=== PATIENT | female | born 1960 | race Two or more races ===

== ENCOUNTER 2016-05-03 00:36 | Emergency (ER) | payer MEDICAID, OTHER ==
[2016-05-03 00:50] VITALS: BP 154/80; TEMP 98.1
[2016-05-03] MEDS ORDERED: IBUPROFEN 600 MG TAB PO ONE (01:09)
--- NOTE | 2016-05-03 01:22 | EDPHY ---
H & P Stated Complaint: cough, recent illness in house, sore throat HPI/ROS: HPI CHIEF COMPLAINT: Cough, sore throat, wheezing, fever HISTORY OF PRESENT ILLNESS: This patient very pleasant 56-year-old female morbidly obese, significant past medical history for diabetes, hypertension, hyperlipidemia, presents to the emergency room with 2 weeks of upper respiratory tract infection symptoms. Patient states tonight she got a fever. Unclear exactly how high temp it was a tactile fever. She endorses no nausea no vomiting no diarrhea no chest pain no shortness of breath. She tells me that on Tuesday she went to [facility] and was given albuterol inhaler. she states her symptoms have not really improved she has sinus congestion, sore throat, cough nonproductive. Faint wheezing. Past Medical History: Hypertension, hyperlipidemia, obesity, diabetes Past Surgical History: No recent surgical history Social History: Denies use of drugs alcohol tobacco products Family History: noncontributory ROS REVIEW OF SYSTEMS: A comprehensive 10 point review of systems is otherwise negative aside from elements mentioned in the history of present illness. Exam Constitutional Appears well nontoxic,triage nursing summary reviewed, vital signs reviewed, awake/alert. no fever here. Eyes normal conjunctivae and sclera, EOMI, PERRLA. HENT posterior pharynx large tongue, uvula midline, no significant erythema or exudate, nasal turbinates are inflamed, there is sinus congestion, normal inspection, atraumatic, moist mucus membranes, no epistaxis, neck supple/ no meningismus, no raccoon eyes. Respiratory faint wheezing bilaterally, bronchitic sounding cough,normal breath sounds, no respiratory distress, Cardiovascular rate normal, regular rhythm, no murmur, no edema, distal pulses normal. Gastrointestinal soft, non-tender, no rebound, no guarding, normal bowel sounds, no distension, no pulsatile mass. Genitourinary no CVA tenderness. Musculoskeletal no midline vertebral tenderness, full range of motion, no calf swelling, no tenderness of extremities, no meningismus, good pulses, neurovascularly intact. Skin pink, warm, & dry, no rash, skin atraumatic. Neurologic awake, alert and oriented x 3, AAOx3, moves all 4 extremities equally, motor intact, sensory intact, CN II-XII intact, normal cerebellar, normal vision, normal speech. Psychiatric normal mood/affect. Heme/Lymph/Immune no lymphadenopathy. Differential Diagnosis: includes but is not limited to in a particular order, strep pharyngitis, viral syndrome, upper respiratory tract infection, influenza , viral pneumonia, bacterial pneumonia, bronchitis, reactive airway disease, asthma Medical Decision Making: plan for this patient is rapid strep, influenza test, two view chest x-ray to rule out pneumonia, DuoNeb breathing treatment ibuprofen for pain control. It is noted upon arrival here in emergency room the patient does not have a fever. Re-evaluation: ED x-ray chest two view: peribronchial thickening consistent with bronchitis, no focal pneumonia. 0256: Re-examination at this time this patient is resting comfortably no acute distress. Appears well. Feels much better after DuoNeb breathing treatment. Chest x-ray shows no focal pneumonia. There is peribronchial thickening present. Will treat her for bronchitis/viral syndrome. She appears well no trouble swallowing, no chest pain, no shortness of breath. Vital signs been reviewed. Source: Patient - Medical/Surgical History Hx Asthma: No Hx Chronic Respiratory Disease: No Hx Diabetes: Yes Hx Cardiac Disease: No Hx Renal Disease: No Hx Cirrhosis: No Hx Alcoholism: No Hx HIV/AIDS: No Hx Splenectomy or Spleen Trauma: No Other PMH: niddm, hypertension, hyperlipidemia, brain aneurysm. cholecystectomy , right shoulder sx, colon sx - Social History Smoking Status: Never smoked Constitutional: Initial Vital Signs Temperature (C) 36.7 C 05/03/16 00:46 Heart Rate 80 05/03/16 00:46 Respiratory Rate 20 05/03/16 00:46 Blood Pressure 154/80 H 05/03/16 00:46 O2 Sat (%) 92 05/03/16 00:46 O2 Delivery Mode Room Air Allergies/Adverse Reactions: No Known Allergies Allergy (Verified 05/03/16 00:53) Home Medications: Medication Instructions Recorded Losartan Potassium [Cozaar 50 mg 50 mg PO BID 05/11/15 (*)] Metformin HCl [Metformin 1000 mg] 1,000 mg PO BIDMEAL 05/11/15 glipiZIDE [Glipizide] 10 mg PO DAILY 05/11/15 AZITHROMYCIN [Z-PACK] 250 mg PO DAILY #6 tab 05/03/16 Albuterol [Proventil Inhaler HFA 1 - 2 puffs IH Q4H #1 mdi 05/03/16 (*)] Aspirin 81mg (*) 05/03/16 Atorvastatin Calcium 05/03/16 Guaifenesin [Guaifenesin ER] 600 mg PO BID #14 tab.er.12h 05/03/16 Ibuprofen [Motrin (*)] 800 mg PO Q6-8PRN #7 tab 05/03/16 PROVENTIL HFA 05/03/16 traMADol 05/03/16 Medical Decision Making - Data Points Laboratory Results: 05/03/16 05/03/16 05/03/16 Unknown 00:58 00:58 Influenza Typ A,B (DFA) NEGATIVE FOR FLU (NEGATIVE) Group A Strep Screen NEGATIVE (NEGATIVE) Group A Strep DNA Pending Medications Given: Discontinued Medications Albuterol/Ipratropium (Duoneb) 3 ml IH EDNOW ONE Stop: 05/03/16 01:33 Last Admin: 05/03/16 01:36 Dose: 3 ml Ibuprofen (Motrin) 600 mg PO EDNOW ONE Stop: 05/03/16 01:10 Last Admin: 05/03/16 01:16 Dose: 600 mg Departure - Departure Disposition: Home, Routine, Self-Care Clinical Impression: Bronchitis, Viral syndrome Condition: Good Instructions: Viral Syndrome (ED), Acute Bronchitis (ED) Additional Instructions: 1. Return to the emergency room if your feeling worse have worsening shortness of breath, high fever, vomiting. 2. please stay well-hydrated drink lots of fluids 3. take Tylenol or Motrin for pain control. 4. Please follow up with her primary care doctor. Please make appointment next 24 to 48 hours. Referrals: Missy Johnson PA [Primary Care Provider] - As per Instructions Prescriptions: Albuterol [Proventil Inhaler HFA (*)] 1 - 2 puffs IH Q4H #1 mdi AZITHROMYCIN [Z-PACK] 250 mg PO DAILY #6 tab Guaifenesin [Guaifenesin ER] 600 mg PO BID #14 tab.er.12h Ibuprofen [Motrin (*)] 800 mg PO Q6-8PRN #7 tab
[2016-05-03] MEDS ORDERED: IPRATROPIUM/ALBUTEROL 3 ML DEYVIAL IH ONE (01:32)
[2016-05-03 03:29] VITALS: PULSE 86; RESP 18; O2SAT 96
== END 2016-05-03 03:23 | disposition home or self-care (01) ==
DX: J20.9 Acute bronchitis, unspecified (principal); B34.9 Viral infection, unspecified; I10 Essential (primary) hypertension; E11.9 Type 2 diabetes mellitus without complications; Z79.82 Long term (current) use of aspirin

== ENCOUNTER 2017-01-04 20:04 | Emergency (ER) | payer OTHER ==
[2017-01-04] MEDS ORDERED: NS 1,000 ML IV ONE ×3 (20:58→23:51)
--- NOTE | 2017-01-04 21:02 | EDPHY ---
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 cholecystectomy , right shoulder sx, colon sx - Family History Significant Family History: No pertinent family hx - Social History Smoking Status: Never smoked Alcohol Use: Sober Drug Use: None Time Seen by Provider: 01/04/17 20:49 HPI/ROS: CHIEF COMPLAINT: Sore throat, body aches HISTORY OF PRESENT ILLNESS: Patient is a 56-year-old obese female who comes to the emergency department complaining of a sore throat, headaches and body aches for the last 2 days as well as a cough. She states the last time she felt this way she had pneumonia. She did get a flu vaccination about 4 days ago. No vomiting. No chest pain. No trauma. No sinus congestion REVIEW OF SYSTEMS: Constitutional: See HPI EENTM: See HPI Respiratory: See HPI Cardiac: denies: chest pain, irregular heart rate, lightheadedness, palpitations Gastrointestinal/Abdominal: denies: abdominal pain, diarrhea, nausea, vomiting, blood streaked stools Genitourinary: denies: dysuria, frequency, hematuria, pain Musculoskeletal: denies: joint pain, muscle pain Skin: denies: lesions, rash, jaundice, bruising Neurological: denies: headache, numbness, paresthesia, tingling, dizziness, weakness Hematologic/Lymphatic: denies: blood clots, easy bleeding, easy bruising Immunologic/allergic: denies: HIV/AIDS, transplant EXAM: GENERAL: Well-appearing, well-nourished and in no acute distress. HEAD: Atraumatic, normocephalic. EYES: Pupils equal round and reactive to light, extraocular movements intact, sclera anicteric, conjunctiva are normal. ENT: TMs normal, nares patent, oropharynx erythematous but difficult to see . Moist mucous membranes. NECK: Normal range of motion, supple without lymphadenopathy or JVD. LUNGS: Breath sounds clear to auscultation bilaterally and equal. No wheezes rales or rhonchi. HEART: Regular rate and rhythm without murmurs, rubs or gallops. ABDOMEN: Soft, nontender, normoactive bowel sounds. No guarding, no rebound. No masses appreciated. BACK: No CVA tenderness, no spinal tenderness, step-offs or deformities EXTREMITIES: Normal range of motion, no pitting or edema. No clubbing or cyanosis. NEUROLOGICAL: Cranial nerves II through XII grossly intact. Normal speech, normal gait. 5/5 strength, normal movement in all extremities, normal sensation PSYCH: Normal mood, normal affect. SKIN: Warm, dry, normal turgor, no visible rashes or lesions. (Prakash Perez) Constitutional: Initial Vital Signs Temperature (C) 37.1 C 01/04/17 20:09 Heart Rate 126 H 01/04/17 20:09 Respiratory Rate 20 01/04/17 20:09 Blood Pressure 172/99 H 01/04/17 20:09 O2 Sat (%) 94 01/04/17 20:09 O2 Delivery Mode Room Air Allergies/Adverse Reactions: No Known Allergies Allergy (Verified 05/03/16 00:53) Home Medications: Medication Instructions Recorded Losartan Potassium [Cozaar 50 mg 50 mg PO BID 05/11/15 (*)] Metformin HCl [Metformin 1000 mg] 1,000 mg PO BIDMEAL 05/11/15 glipiZIDE [Glipizide] 10 mg PO DAILY 05/11/15 Aspirin [Aspirin 81mg (*)] 81 mg PO DAILY 05/03/16 Gabapentin [Neurontin 100 MG (*)] 100 - 300 mg PO DAILY PRN 12/22/16 amLODIPine BESYLATE [Norvasc 2.5 2.5 mg PO DAILY 12/22/16 mg (*)] Medical Decision Making - Diagnostics EKG Interpretation: An EKG obtained and was read and documented in trace view. Please see trace view for full reading and report. Sinus tachycardia, right bundle branch block , similar to previous (Prakash Perez) ED Course/Re-evaluation: 1:30 a.m.- I followed up on this patient throughout the last 2 hours. She has been tachycardic, however this is improved significantly and her heart rate at rest while I am in the room is 100-102. She feels well. She is complaining of a sore throat mostly. She was somewhat hypoxic throughout her ED course and did wear 2 L of supplemental oxygen. I have talked her about this and her family does endorse a history of obstructive sleep apnea for which she uses a CPAP machine for naps and sleeping at night. This probably accounts for some degree of her hypoxia. Her room air saturations are in the low 90s. I feel she is likely well enough to go home. I have offered her admission, however she would like to recuperate at home. She is followed at the [facility] and I will call their voice message number to leave a message to that she can have follow- up in the next 1-2 days for repeat vital signs. She is in agreement with this plan. (Myrna Vanegas) 10:20 p.m. the patient is flu A positive. Her symptoms began greater than 48 hours ago. I will not start Tamiflu. She is feeling much better but still remains slightly tachycardic. We will continue to hydrate and I will treat with Tylenol and ibuprofen. Temperature currently is 37.8. She denies having any urinary symptoms. 11:15 p.m. the patient is receiving more fluids and is received anti- inflammatories. She is still slightly tachycardic. We will continue to observe. Care transferred to Dr. Vanegas (Prakash Perez) Differential Diagnosis: Partial list of the Differential diagnosis considered include but were not limited to; influenza, strep throat, and although unlikely based on the history and physical exam, I also considered meningitis, pneumonia, sepsis. I discussed these differential diagnoses and the plan with the patient as well as the usual and expected course. The patient understands that the diagnosis is provisional and that in medicine we are not always correct and that further workup is often warranted. Usual and customary warnings were given. All of the patient's questions were answered. The patient was instructed to return to the emergency department should the symptoms at all worsen or return, otherwise to followup with the physician as we discussed. (Prakash Perez) - Data Points Laboratory Results: Laboratory Results 01/04/17 23:58 01/04/17 23:58 Medications Given: Discontinued Medications Acetaminophen (Tylenol) 1,000 mg PO EDNOW ONE Stop: 01/04/17 22:20 Last Admin: 01/04/17 22:27 Dose: 1,000 mg Sodium Chloride (Ns) 1,000 mls @ 0 mls/hr IV ONCE ONE; Wide Open PRN Reason: Protocol Stop: 01/04/17 20:59 Last Admin: 01/04/17 21:15 Dose: 1,000 mls Sodium Chloride (Ns) 1,000 mls @ 0 mls/hr IV ONCE ONE; Wide Open PRN Reason: Protocol Stop: 01/04/17 23:03 Last Admin: 01/04/17 23:03 Dose: 1,000 mls Sodium Chloride (Ns) 1,000 mls @ 0 mls/hr IV EDNOW ONE; Wide Open PRN Reason: Protocol Stop: 01/04/17 23:52 Last Admin: 01/04/17 23:57 Dose: 1,000 mls Ibuprofen (Motrin) 800 mg PO EDNOW ONE Stop: 01/04/17 22:20 Last Admin: 01/04/17 22:27 Dose: 800 mg Throat Lozenges (Cepacol Lozenge) 1 ea PO EDNOW ONE Stop: 01/05/17 01:41 Last Admin: 01/05/17 01:41 Dose: 1 ea Departure - Departure Disposition: Home, Routine, Self-Care Clinical Impression: Influenza A Condition: Good Instructions: Influenza (ED) Additional Instructions: Alterne Tylenol y Ibuprofen para ayudar con el dolor. Nhung suficientes liquidos y descanse. Usted tiene la influenza tipo A. Regrese si tiene dolor de pecho o si tiene dolor incontrolable. Referrals: Missy Johnson PA [Primary Care Provider] - As per Instructions
[2017-01-04 21:22] VITALS: RESP 18
--- NOTE | 2017-01-04 21:53 | CPEKG ---
Heart Rate: 125 RR Interval: 480 P-R Interval: 109 QRSD Interval: 122 QT Interval: 332 QTC Interval: 479 P Volcano: 44 QRS Volcano: 4 T Wave Volcano: -10 EKG Severity - ABNORMAL ECG - EKG Impression: SINUS TACHYCARDIA EKG Impression: RBBB AND LPFB EKG Impression: PROBABLE INFERIOR INFARCT, AGE INDETERMINATE Electronically Signed By: Prakash Perez 04-Jan-2017 22:21:14
[2017-01-04 22:05] LABS: COLOR YELLOW; LEUKOCYTE ESTERASE,URINE 1+ (NEGATIVE); NITRITE,URINE NEGATIVE (NEGATIVE)
[2017-01-04 22:10] LABS: MUCUS TRACE /lpf (NONE-1+)
[2017-01-04] MEDS ORDERED: ACETAMINOPHEN 500 MG TAB PO ONE (22:19)
[2017-01-04] MEDS ORDERED: IBUPROFEN 800 MG TAB PO ONE (22:19)
[2017-01-05 00:09] LABS: % IMMATURE GRANULYOCYTES 0.7 % (0.0-1.1); ABSOLUTE IMMATURE GRANULOCYTES 0.06 10^3/uL (0.00-0.10); ADD DIFF? NO; ADD MORPH? NO; ADD SCAN? NO; ATYPICAL LYMPHOCYTE FLAG 20 (0-99); FRAGMENT RBC FLAG 0 (0-99); HEMATOCRIT 38.9 % (38.0-47.0); HEMOGLOBIN 12.5 g/dL (12.6-16.3); LEFT SHIFT FLG 0 (0-99); LIPEMIA HEMOLYSIS FLAG 80 (0-99); MEAN CELL HEMOGLOBIN 27.6 pg (27.9-34.1); MEAN CELL HEMOGLOBIN CONCENTR. 32.1 g/dL (32.4-36.7); MEAN CELL VOLUME 85.9 fL (81.5-99.8); MEAN PLATELET VOLUME 10.1 fL (8.7-11.7); PLATELET CLUMPS FLAG 10 (0-99); PLATELET COUNT 238 10^3/uL (150-400); RED BLOOD CELL COUNT 4.53 10^6/uL (4.18-5.33); RED CELL DISTRIBUTION WIDTH 13.9 % (11.5-15.2)
[2017-01-05 00:16] VITALS: TEMP 99.1
[2017-01-05 00:35] LABS: ANION GAP 12 mEq/L (8-16); CALCIUM 8.6 mg/dL (8.5-10.4); CARBON DIOXIDE 21 mEq/l (22-31); CHLORIDE 113 mEq/L (97-110); CREATININE 0.7 mg/dL (0.6-1.0); GLOMERULAR FILTRATION RATE > 60; GLUCOSE 160 mg/dL (70-100); POTASSIUM 3.5 mEq/L (3.5-5.2); SODIUM 146 mEq/L (134-144)
[2017-01-05] MEDS ORDERED: CEPACOL LOZENGE PO ONE ×2 (01:40)
[2017-01-05 01:45] VITALS: BP 132/67; PULSE 111; O2SAT 90
== END 2017-01-05 01:44 | disposition home or self-care (01) ==
DX: J10.1 Influenza due to other identified influenza virus with other respiratory manifestations (principal); I10 Essential (primary) hypertension; E11.9 Type 2 diabetes mellitus without complications; E86.9 Volume depletion, unspecified; Z79.82 Long term (current) use of aspirin; Z79.84 Long term (current) use of oral hypoglycemic drugs

== ENCOUNTER 2017-01-13 13:15 | Emergency (ER) | payer OTHER ==
[2017-01-13 13:23] VITALS: TEMP 98.2
[2017-01-13] MEDS ORDERED: KETOROLAC 30 MG/1 ML SDV IM ONE (13:37)
--- NOTE | 2017-01-13 13:37 | EDPHY ---
H & P Stated Complaint: dx influenza/has noticed pain in l throat and l side of face/ eagle Time Seen by Provider: 01/13/17 13:25 HPI/ROS: CHIEF COMPLAINT: Tender throat and face HISTORY OF PRESENT ILLNESS: The patient is a 56-year-old female who I saw on the and diagnosed with influenza a. She comes back to the emergency department today complaining of tender swollen lymph nodes that are causing pain in her left periauricular area and is angle of her mandible the. She states that hurts when she moves her mouth or swallows. She is tolerating the p.o.. She denies sore throat. She denies headache. She has been taking Tylenol at home with minimal improvement. No respiratory complaints. No chest complaints. No headache. REVIEW OF SYSTEMS: Constitutional: See HPI EENTM: denies: blurred vision, double vision, nose congestion Respiratory: denies: cough, shortness of breath Cardiac: denies: chest pain, irregular heart rate, lightheadedness, palpitations Gastrointestinal/Abdominal: denies: abdominal pain, diarrhea, nausea, vomiting, blood streaked stools Genitourinary: denies: dysuria, frequency, hematuria, pain Musculoskeletal: denies: joint pain, muscle pain Skin: denies: lesions, rash, jaundice, bruising Neurological: denies: headache, numbness, paresthesia, tingling, dizziness, weakness Hematologic/Lymphatic: denies: blood clots, easy bleeding, easy bruising Immunologic/allergic: denies: HIV/AIDS, transplant EXAM: GENERAL: Well-appearing, well-nourished and in no acute distress. HEAD: Atraumatic, normocephalic. Is tender slightly swollen lymph nodes left preauricular area and angle of mandible and left eyebrow. No erythema. No pain with eye movement. EYES: Pupils equal round and reactive to light, extraocular movements intact, sclera anicteric, conjunctiva are normal. ENT: TMs normal, nares patent, oropharynx clear without exudates. Moist mucous membranes. NECK: Normal range of motion, supple without lymphadenopathy or JVD. LUNGS: Breath sounds clear to auscultation bilaterally and equal. No wheezes rales or rhonchi. HEART: Regular rate and rhythm without murmurs, rubs or gallops. ABDOMEN: Soft, nontender, normoactive bowel sounds. No guarding, no rebound. No masses appreciated. BACK: No CVA tenderness, no spinal tenderness, step-offs or deformities EXTREMITIES: Normal range of motion, no pitting or edema. No clubbing or cyanosis. NEUROLOGICAL: Cranial nerves II through XII grossly intact. Normal speech, normal gait. 5/5 strength, normal movement in all extremities, normal sensation PSYCH: Normal mood, normal affect. SKIN: Warm, dry, normal turgor, no visible rashes or lesions. Source: Patient Exam Limitations: No limitations - Personal History Current Tetanus/Diphtheria Vaccine: Yes Tetanus Vaccine Date: 2012 - Medical/Surgical History Hx Asthma: No Hx Chronic Respiratory Disease: No Hx Diabetes: Yes Hx Cardiac Disease: No Hx Renal Disease: No Hx Cirrhosis: No Hx Alcoholism: No Hx HIV/AIDS: No Hx Splenectomy or Spleen Trauma: No Other PMH: niddm, hypertension, hyperlipidemia, brain aneurysm. cholecystectomy , right shoulder sx, colon sx - Family History Significant Family History: No pertinent family hx - Social History Smoking Status: Never smoked Alcohol Use: Sober Drug Use: None Constitutional: Initial Vital Signs Temperature (C) 36.8 C 01/13/17 13:20 Heart Rate 100 01/13/17 13:20 Respiratory Rate 20 01/13/17 13:20 Blood Pressure 142/99 H 01/13/17 13:20 O2 Sat (%) 93 01/13/17 13:20 O2 Delivery Mode Room Air Allergies/Adverse Reactions: No Known Allergies Allergy (Verified 01/13/17 13:18) Home Medications: Medication Instructions Recorded Losartan Potassium [Cozaar 50 mg 50 mg PO BID 05/11/15 (*)] Metformin HCl [Metformin 1000 mg] 1,000 mg PO BIDMEAL 05/11/15 glipiZIDE [Glipizide] 10 mg PO DAILY 05/11/15 Aspirin [Aspirin 81mg (*)] 81 mg PO DAILY 05/03/16 Gabapentin [Neurontin 100 MG (*)] 100 - 300 mg PO DAILY PRN 12/22/16 amLODIPine BESYLATE [Norvasc 2.5 2.5 mg PO DAILY 12/22/16 mg (*)] Amlodipine Besylate 01/13/17 Cyclobenzaprine 01/13/17 Promethazine HCl/Codeine 5 ml PO Q4-6PRN PRN #90 ml 01/13/17 [Prometh-Codein 6.25-10 mg/5 ml] Medical Decision Making ED Course/Re-evaluation: The patient has painful lymph nodes. She is currently near the end of an infection with influenza a. Otherwise she is well appearing. No headache. No chest pain or shortness of breath. She does have mild cough. I will treat her with Toradol and a dose of Decadron. She a is happy with this plan. We also discussed [id number] cough syrups because pharmacies are all closed today. We discussed indications for returning. Differential Diagnosis: Partial list of the Differential diagnosis considered include but were not limited to; influenza, lymphadenopathy and although unlikely based on the history and physical exam, I also considered temporal arteritis, meningitis, cellulitis, salivary duct stone. I discussed these differential diagnoses and the plan with the patient as well as the usual and expected course. The patient understands that the diagnosis is provisional and that in medicine we are not always correct and that further workup is often warranted. Usual and customary warnings were given. All of the patient's questions were answered. The patient was instructed to return to the emergency department should the symptoms at all worsen or return, otherwise to followup with the physician as we discussed. - Data Points Medications Given: Discontinued Medications Dexamethasone (Decadron Injection) 10 mg PO EDNOW ONE Stop: 01/13/17 13:39 Last Admin: 01/13/17 13:41 Dose: 10 mg Ketorolac Tromethamine (Toradol) 30 mg IM EDNOW ONE Stop: 01/13/17 13:38 Last Admin: 01/13/17 13:41 Dose: 30 mg Departure - Departure Disposition: Home, Routine, Self-Care Clinical Impression: Influenza A, Lymphadenopathy of head and neck Condition: Fair Instructions: Influenza Virus Vaccine (By injection), Lymphadenopathy (ED), Influenza (ED) Referrals: [facility],. [Primary Care Provider] - As per Instructions Prescriptions: Promethazine HCl/Codeine [Prometh-Codein 6.25-10 mg/5 ml] 5 ml PO Q4-6PRN PRN # 90 ml PRN Reason: Cough, Moderate
[2017-01-13] MEDS ORDERED: DEXAMETHASONE 10 MG/ML VIAL PO ONE (13:38)
[2017-01-13 14:16] VITALS: BP 144/70; PULSE 81; RESP 18; O2SAT 97
== END 2017-01-13 14:16 | disposition home or self-care (01) ==
DX: J10.1 Influenza due to other identified influenza virus with other respiratory manifestations (principal); R59.0 Localized enlarged lymph nodes; E11.9 Type 2 diabetes mellitus without complications; I10 Essential (primary) hypertension; Z79.82 Long term (current) use of aspirin; Z79.84 Long term (current) use of oral hypoglycemic drugs
CPT/HCPCS: J1100; J1885

== ENCOUNTER 2017-01-28 09:43 | Inpatient (IN) | payer OTHER ==
[2017-01-03 11:54] LABS: ANION GAP 11 mEq/L (8-16); CALCIUM 9.1 mg/dL (8.5-10.4); CARBON DIOXIDE 27 mEq/l (22-31); CHLORIDE 107 mEq/L (97-110); CREATININE 0.8 mg/dL (0.6-1.0); GLOMERULAR FILTRATION RATE > 60; GLUCOSE 89 mg/dL (70-100); POTASSIUM 4.6 mEq/L (3.5-5.2); SODIUM 145 mEq/L (134-144)
[~2017-01-28 09:43] MED LIST: ROPIVACAINE 0.2% 80 MG, EPINEPHrine 0.2 MG, KETOROLAC TROMETHAMINE 30 MG in SYRINGE 0 ML IU ONE; TRANEXAMIC ACID 3,000 MG in NS 50 ML IRR ONE; VANCOMYCIN 1 GM VIAL ONE
--- NOTE | 2017-01-28 10:20 | PDHPUP ---
History & Physical Update H&P update statement: This history and physical update is based on an assessment of the patient which was completed after admission or registration (within 24 hours), but prior to the surgery/procedure. H&P update: H&P reviewed & patient examined, no change in patient's condition since H&P completed
[2017-01-28] MEDS ORDERED: ACETAMINOPHEN 325 MG TAB PO ONE (11:18)
[2017-01-28] MEDS ORDERED: ceFAZolin 2 GM/SWFI 2 GM/20 ML SYR IVP ONE (11:18)
[2017-01-28] MEDS ORDERED: DEXAMETHASONE 4 MG/ML VIAL IVP ONE (11:18)
[2017-01-28] MEDS ORDERED: FAMOTIDINE 20 MG TAB PO ONE (11:18)
[2017-01-28] MEDS ORDERED: MIDAZOLAM 2 MG/2 ML VIAL IVP ONE (11:56)
[2017-01-28] MEDS ORDERED: MIDAZOLAM 2 MG/2 ML VIAL ONE (11:56)
--- NOTE | 2017-01-28 11:57 | PDANEPAE ---
ANE History of Present Illness rIGHT KNEE OA ANE Past Medical History - Cardiovascular History Hx Hypertension: Yes Hx Arrhythmias: No Hx Chest Pain: No Hx Coronary Artery / Peripheral Vascular Disease: No Hx CHF / Valvular Disease: No Hx Palpitations: No - Pulmonary History Hx COPD: No Hx Asthma/Reactive Airway Disease: No Hx Recent Upper Respiratory Infection: No Hx Oxygen in Use at Home: No Hx Sleep Apnea: Yes Sleep Apnea Screening Result - Last Documented: Positive - Neurologic History Hx Cerebrovascular Accident: No Hx Seizures: No Hx Dementia: No - Endocrine History Hx Diabetes: Yes Obesity: severe - Renal History Hx Renal Disorders: No - Liver History Hx Hepatic Disorders: No - Neurological & Psychiatric Hx Hx Neurological and Psychiatric Disorders: No Neurological / Psychiatric History Comment: cerebral anurysm stable - Cancer History Hx Cancer: No - Congenital Disorder History Hx Congenital Disorders: No - GI History Hx Gastrointestinal Disorders: Yes Gastrointestinal History Comment: HX COLON RESECTION - Other Health History Other Health History: none - Chronic Pain History Chronic Pain: No - Surgical History Prior Surgeries: COLON RESECTION. CHOLECYSTECTOMY. SHOULDER SURGERY ANE Review of Systems Review of Systems: - Exercise capacity METS (RN): 3 METS ANE Patient History - Allergies Allergies/Adverse Reactions: No Known Allergies Allergy (Verified 01/13/17 13:18) - Home Medications Home medications: home medication list seen and reviewed Home Medications: Losartan Potassium [Cozaar 50 mg (*)] 50 mg PO BID 05/11/15 [Last Taken 01/25/17 ] Metformin HCl [Metformin 1000 mg] 1,000 mg PO BIDMEAL 05/11/15 [Last Taken 01/26] glipiZIDE [Glipizide] 10 mg PO DAILY 05/11/15 [Last Taken 01/25/17] Aspirin [Aspirin 81mg (*)] 81 mg PO DAILY 05/03/16 [Last Taken 01/20/17] Gabapentin [Neurontin 100 MG (*)] 100 - 300 mg PO DAILY PRN 12/22/16 [Last Taken Unknown] amLODIPine BESYLATE [Norvasc 2.5 mg (*)] 2.5 mg PO DAILY 12/22/16 [Last Taken ] Cyclobenzaprine 01/13/17 [Last Taken 01/25/17] - NPO status NPO Status: no food or drink >8 hours NPO Since - Liquids (Date): 01/28/17 NPO Since - Solids (Date): 01/27/17 - Smoking Hx Smoking Status: Never smoked - Family Anes Hx Family Hx Anesthesia Complications: none ANE Labs/Vital Signs - Labs Result Diagrams: 01/03/17 11:00 - Vital Signs Blood Pressure: 164/93 Heart Rate: 104 Respiratory Rate: 16 O2 Sat (%): 92 Height: 160 cm Weight: 99.79 kg ANE Physical Exam - Airway Neck exam: FROM Mallampati Score: Class 3 Mouth exam: normal dental/mouth exam - Pulmonary Pulmonary: no respiratory distress - Cardiovascular Cardiovascular: regular rate and rhythym - ASA Status ASA Status: III ANE Anesthesia Plan Anesthesia Plan: general endotracheal anesthesia, spinal Regional Anesthesia: adductor canal FNB
[2017-01-28] MEDS ORDERED: PROPOFOL/EMULSION 500 MG/50 ML BOTTLE IV ONE ×2 (12:04→13:04)
[2017-01-28] MEDS ORDERED: fentaNYL 100 MCG/2 ML INJ ONE (12:04)
[2017-01-28] MEDS ORDERED: ONDANSETRON 4 MG/2 ML VIAL ONE (12:20)
[2017-01-28] MEDS ORDERED: DEXAMETHASONE 4 MG/ML VIAL ONE (12:20)
[2017-01-28] MEDS ORDERED: TEMAZEPAM 15 MG CAP PO PRN (12:38)
[2017-01-28] MEDS ORDERED: POLYETHYLENE GLYCOL 3350 17 GM PKT PO PRN (12:38)
[2017-01-28] MEDS ORDERED: METOCLOPRAMIDE 10 MG/2 ML VIAL IVP PRN (12:38)
[2017-01-28] MEDS ORDERED: PROMETHAZINE HCL 25 MG/ML INJ IVP PRN ×2 (12:38→12:41)
[2017-01-28] MEDS ORDERED: ONDANSETRON DISINTEGRATING 4 MG TAB PO PRN (12:38)
[2017-01-28] MEDS ORDERED: LACTULOSE 20 GM/30 ML UDCUP PO PRN (12:38)
[2017-01-28] MEDS ORDERED: CYCLOBENZAPRINE 10 MG TAB PO PRN (12:38)
[2017-01-28] MEDS ORDERED: MAGNESIUM HYDROXIDE 30 ML UDCUP PO PRN (12:38)
[2017-01-28] MEDS ORDERED: DIPHENOXYLATE/ATROPINE LOMOTIL 1 TAB PO PRN (12:38)
[2017-01-28] MEDS ORDERED: diphenhydrAMINE 25 MG CAP PO PRN (12:38)
[2017-01-28] MEDS ORDERED: oxyCODONE IR 5 MG TAB PO PRN (12:38)
[2017-01-28] MEDS ORDERED: BISACODYL 10 MG SUPP PR PRN (12:38)
[2017-01-28] MEDS ORDERED: PROMETHAZINE HCL 25 MG SUPPR PR PRN (12:38)
[2017-01-28] MEDS ORDERED: ONDANSETRON 4 MG/2 ML VIAL IVP PRN ×2 (12:38→12:41)
[2017-01-28] MEDS ORDERED: GABAPENTIN 100 MG CAP PO PRN (12:39)
[2017-01-28] MEDS ORDERED: ROPIVACAINE HCL 150 MG/30 ML INJ ONE (12:40)
[2017-01-28] MEDS ORDERED: MEPERIDINE 25 MG/ML SYR IVP PRN (12:41)
[2017-01-28] MEDS ORDERED: HYDROmorphONE/DILAUDID 1 MG/ML INJ IVP PRN (12:41)
[2017-01-28] MEDS ORDERED: NALOXONE HCL 0.4 MG/ML INJ IVP PRN (12:41)
[2017-01-28] MEDS ORDERED: OXYCODONE/APAP 5/325 TAB PO PRN (12:41)
[2017-01-28] MEDS ORDERED: fentaNYL 100 MCG/2 ML INJ IVP PRN (12:41)
[2017-01-28] MEDS ORDERED: HYDROmorphone HCL/NS/PF 0.4 MG/2 ML SYR IVP PRN (12:52)
[2017-01-28] MEDS ORDERED: LR 1,000 ML IV SCH (13:00)
--- NOTE | 2017-01-28 13:41 | POSTANESTH ---
Post Anesthetic Evaluation Cardiovascular Status: Normal, Stable Respiratory Status: Normal, Stable Level of Consciousness/Mental Status: Can Participate in Eval Pain Control: Adequate, Prn Tx Ordered Nausea/Vomiting Control: Adequate, Prn Tx Ordered Complications Possibly Related to Anesthesia: None Noted
--- NOTE | 2017-01-28 13:42 | POSTOPPROG ---
Post Op Note Date of Operation: 01/28/17 Surgeon: Carina Reed Hub Bander: Janice Reed PAc Anesthesiologist: Josue Anesthesia: Spinal Pre-op Diagnosis: R knee djd Post-op Diagnosis: same Indication: pain Procedure: R TKA Findings: DJD knee Inf/Abcess present in the surg proc area at time of surgery?: No EBL: 50-100
[2017-01-28] MEDS ORDERED: D50W 25 GM/50 ML SYR IVP PRN (17:08)
[2017-01-28] MEDS ORDERED: NON-FORMULARY NEW DRUG (Metformin Hcl [Metformin 1000 Mg] 1,000 MG) PO SCH (18:00)
[2017-01-28] MEDS: ACETAMINOPHEN 325 MG TAB PO SCH (18:36)
[2017-01-28] MEDS: metFORMIN HCL 500 MG TAB PO SCH (18:37)
[2017-01-28] MEDS: INSULIN LISPRO 100 UNIT/ML SC SCH (18:37)
[2017-01-28] MEDS ORDERED: ASPIRIN 325 MG TAB PO SCH (21:00)
[2017-01-28] MEDS: SENNOSIDES/DOCUSATE SODIUM TAB PO SCH (21:20)
[2017-01-28] MEDS: ASPIRIN EC 81 MG TAB PO SCH (21:21)
[2017-01-28] MEDS: LOSARTAN POTASSIUM 50 MG TAB PO SCH (21:21)
[2017-01-28] MEDS: FAMOTIDINE 20 MG TAB PO SCH (21:24)
[2017-01-28] MEDS: ceFAZolin 2 GM/DEXTROSE 100 ML IV SCH (21:24)
[2017-01-28 22:44] VITALS: RESP 17
[2017-01-29] MEDS: ACETAMINOPHEN 325 MG TAB PO SCH ×3 (00:25→12:37)
[2017-01-29] MEDS: ceFAZolin 2 GM/DEXTROSE 100 ML IV SCH (04:54)
[2017-01-29 05:04] LABS: HEMATOCRIT 35.5 % (38.0-47.0); HEMOGLOBIN 11.6 g/dL (12.6-16.3)
[2017-01-29 07:32] VITALS: BP 119/63; TEMP 98.4
[2017-01-29] MEDS: FAMOTIDINE 20 MG TAB PO SCH (08:36)
[2017-01-29] MEDS: ASPIRIN EC 81 MG TAB PO SCH (08:36)
[2017-01-29] MEDS: LOSARTAN POTASSIUM 50 MG TAB PO SCH (08:36)
[2017-01-29] MEDS: INSULIN LISPRO 100 UNIT/ML SC SCH (08:37)
[2017-01-29] MEDS: metFORMIN HCL 500 MG TAB PO SCH (08:39)
[2017-01-29] MEDS: SENNOSIDES/DOCUSATE SODIUM TAB PO SCH (08:39)
[2017-01-29] MEDS ORDERED: glipiZIDE 10 MG TAB PO SCH (09:00)
--- NOTE | 2017-01-29 09:51 | SOAPPROG ---
[facility] Progress Note Assessment/Plan: Assessment: Plan: 01/29/17 09:49 Ca is doing well today POD 1 s/p R TKA 1) pain management: pain is well controlled on oral pain management 2) VTE ppx: recommend aspirin 81 mg BID 3) Anemia: level expected initially postop 4) d/c planning: d/c to home pending release from PT Subjective: Ca is doing well today, denies SOB, chest pain, and N/v. pain well controlled on oral pain meds Objective: Vital Signs Temp Pulse Resp BP Pulse Ox 36.9 C 99 17 119/63 95 01/29/17 07:30 01/29/17 07:30 01/29/17 04:00 01/29/17 08:36 01/29/17 07:30 Laboratory Results 01/29/17 04:31 01/03/17 11:00 01/28/17 01/29/17 01/30/17 05:59 05:59 05:59 Intake Total 1950 Output Total 650 Balance 1300 RLE: incision dressing is clean and dry, NVI, +pf/df ICD10 Worksheet Patient Problems: Problems Problem Status Onset Primary localized osteoarthritis of right knee Acute Cerebral aneurysm Acute Diabetes Acute HTN (hypertension) Acute Hypoxemia requiring supplemental oxygen Acute Pharyngitis, acute Acute
[2017-01-29 13:16] VITALS: PULSE 102; O2SAT 92
--- NOTE | 2017-01-29 14:36 | ASDISCHSUM ---
Discharge Information Plan Status:Home with No Needs Medically Cleared to Leave: Discharge Date:01/29/2017 01:02 PM CM D/C Disposition:Home, Routine, Self-Care ADT D/C Disposition:Home, Routine, Self-Care Projected Discharge Date:01/29/2017 01:02 PM Transportation at D/C: Discharge Delay Reason: Follow-Up Date:01/29/2017 01:02 PM Discharge Slot: Final Diagnosis: Placement Information Patient Contact Information Contact Name:MARIBELL Relationship: Address:[address] Work Phone: City:[place] Alternate Phone: State/Zip Code:[place] [address] Email: Financial Information Financial Class:Self-Pay Primary Plan Desc:WE CARE Primary Plan Number:99 Secondary Plan Desc: Secondary Plan Number: Assessment Information Intervention Information
--- NOTE | 2017-01-30 10:52 | GDS ---
[f rep st] DISCHARGE SUMMARY ADMISSION DIAGNOSIS: Right knee osteoarthritis. DISCHARGE DIAGNOSIS: Right knee osteoarthritis PROCEDURE: Right total knee arthroplasty. VTE PROPHYLAXIS: Recommend aspirin 81 mg twice daily for 4 weeks. BRIEF DESCRIPTION OF HOSPITAL STAY: Patient was admitted for an elective joint arthroplasty. The pa tient tolerated the procedure well and has passed physical therapy. The patient was given appropriat e antibiotic prophylaxis and venous thromboembolism prophylaxis. The patient's pain was well control led on oral pain medication, patient was holding down food, and had urinated. Decision was made to d ischarge the patient. The patient was given post-operative prescriptions pre-operatively. PLAN: Please follow up as scheduled. /[id number]/MODL
--- NOTE | 2017-01-31 21:53 | GOP ---
[f rep st] OPERATIVE REPORT DATE OF OPERATION: 01/28/2017 SURGEON: Frank Reed MD WINDOWS ARCHITECT: Janice Reed PA-C ANESTHESIA: Spinal. PREOPERATIVE DIAGNOSIS: Right knee osteoarthritis. POSTOPERATIVE DIAGNOSIS: Right knee osteoarthritis. . PROCEDURE PERFORMED: Right total knee arthroplasty. FINDINGS: ESTIMATED BLOOD LOSS: 30 cc. INDICATIONS: This is a 56-year-old female with severe and progressive pain and deformity of the right knee unresponsive to conservative care. Risks and benefits of the surgical intervention were explained in detail. DESCRIPTION OF PROCEDURE: The patient was brought to the operative room and placed on the table in the supine position. Spinal anesthesia was induced without difficulty. A pneumatic tourniquet was applied about the right proximal thigh, and the leg was prepped and draped in a sterile fashion. The leg mitchell was applied. After exsanguination by elevation the tourniquet was inflated to 250 mm of mercury. Incision was made anterior medial from the tibial tuberosity to a point 2 cm proximal to the superior pole of the patella. Medial parapatellar arthrotomy was carried out from the superior pole of the patella and posteriorly in line with the fibers of the Type 2 VMO. The medial collateral ligament was elevated and the infrapatellar fat pad was resected. The patella was everted and the articular surface was excised. A 35 mm patellar button was placed. The distal femoral guide hole was drilled and the 60 -degree alignment demi was placed. A 10 mm distal femoral cut was made without difficulty. Attention was turned to the tibia and a standard 9 mm cut based on the the lateral tibial condyle was performed. The tibial articular surface was excised without difficulty. Attention was turned back to the femur and a size 3 Triathlon femoral cutting block was positioned. Anterior, posterior, and chamfer cuts were made, followed by the intercondylar box cut. The knee was extended and the remnants of the medial and lateral meniscus were excised. The posterior capsule was injected with ropivacaine, epinephrine and Toradol. A size 4 MIS mini-keel tibial tray was positioned. Trial reduction was then carried out. There was excellent range of motion, alignment, and stability using the 11 mm polyethylene. All trials were then removed. The joint was thoroughly irrigated and carefully dried. Two packages of cement and 2 grams of vancomycin were mixed in the vacuum mixer and placed on the fixation surfaces of all surfaces of the components. The components were implanted and all excess cement was thoroughly removed. The permanent 11 mm polyethylene was placed without difficulty. The tourniquet was deflated and all bleeders were coagulated. The wound was thoroughly irrigated and closed using interrupted sutures of 2-0 Vicryl for the joint capsule. The subcu was closed with 3-0 Vicryl and the skin with 4-0 Monocryl. Dermabond and Steri-Strips were applied followed by a compressive dressing. The patient was then moved from the operating room to the recovery room in good condition, having tolerated the procedure well. PATHOLOGY: Severe medial and patellofemoral osteoarthritis. /[id number]/MODL MTDD
== END 2017-01-29 13:02 | disposition home or self-care (01) | DRG 470 ==
LOC: F3N 09:43
PROVIDERS: ADMIT Orthopaedic Surgery; ATTEND Orthopaedic Surgery
PROC: 0SRC0J9 Replacement of Right Knee Joint with Synthetic Substitute, Cemented, Open Approach (ICD-10-PCS; principal; 2017-01-28 12:15)
DX: M17.11 Unilateral primary osteoarthritis, right knee (principal); E11.9 Type 2 diabetes mellitus without complications
CPT/HCPCS: 97161-GP; 97165-GO; C1713; J0171; J0690; J1100; J1815; J1885; J2250; J2405; J2704; J2795; J3010; J3370

== ENCOUNTER 2017-07-13 08:41 | Observation (INO) | payer OTHER ==
[~2017-07-13 08:41] MED LIST changes: +ROPIVACAINE 0.2% 80 MG, EPINEPHrine 0.2 MG in SYRINGE 0 ML IU ONE; -TRANEXAMIC ACID 3,000 MG in NS 50 ML IRR ONE; -VANCOMYCIN 1 GM VIAL ONE
[2017-07-13] MEDS ORDERED: TRANEXAMIC ACID 3,000 MG in NS (SYRINGE) 50 ML IRR ONE (09:09)
[2017-07-13] MEDS ORDERED: DEXAMETHASONE 4 MG/ML VIAL IVP ONE (09:09)
[2017-07-13] MEDS ORDERED: ceFAZolin 2 GM/DEXTROSE 100 ML IV ONE (09:09)
[2017-07-13] MEDS ORDERED: FAMOTIDINE 20 MG TAB PO ONE (09:09)
[2017-07-13] MEDS ORDERED: LR 1,000 ML IV ONE (09:29)
[2017-07-13] MEDS ORDERED: LIDOCAINE 1% 2 ML INJ ID PRN (09:29)
[2017-07-13] MEDS ORDERED: ceFAZolin 2 GM/SWFI 2 GM/20 ML SYR IVP ONE (09:30)
[2017-07-13] MEDS ORDERED: VANCOMYCIN 1 GM VIAL ONE (09:57)
[2017-07-13] MEDS ORDERED: MIDAZOLAM 2 MG/2 ML VIAL ONE (10:58)
[2017-07-13] MEDS ORDERED: MIDAZOLAM 2 MG/2 ML VIAL IVP ONE (10:59)
--- NOTE | 2017-07-13 11:01 | PDANEPAE ---
ANE History of Present Illness left knee oa ANE Past Medical History - Cardiovascular History Hx Hypertension: Yes Hx Arrhythmias: No Hx Chest Pain: No Hx Coronary Artery / Peripheral Vascular Disease: No Hx CHF / Valvular Disease: No Hx Palpitations: No - Pulmonary History Hx COPD: No Hx Asthma/Reactive Airway Disease: No Hx Recent Upper Respiratory Infection: No Hx Oxygen in Use at Home: No Hx Sleep Apnea: Yes Sleep Apnea Screening Result - Last Documented: Negative Pulmonary History Comment: NOCTURNAL HYPOXIA ELISSA WITH CPAP - Neurologic History Hx Cerebrovascular Accident: No Hx Seizures: No Hx Dementia: No Neurologic History Comment: HX OF ANEURYSM IN BRAIN - Endocrine History Hx Diabetes: Yes Endocrine History Comment: TYPE 11 - Renal History Hx Renal Disorders: No - Liver History Hx Hepatic Disorders: No - Neurological & Psychiatric Hx Hx Neurological and Psychiatric Disorders: No Neurological / Psychiatric History Comment: cerebral anurysm stable - Cancer History Hx Cancer: No - Congenital Disorder History Hx Congenital Disorders: No - GI History Hx Gastrointestinal Disorders: Yes Gastrointestinal History Comment: HX COLON RESECTION - Other Health History Other Health History: none - Chronic Pain History Chronic Pain: No - Surgical History Prior Surgeries: COLON RESECTION. CHOLECYSTECTOMY. SHOULDER SURGERY ANE Review of Systems Review of Systems: - Exercise capacity METS (RN): 4 METS ANE Patient History - Allergies Allergies/Adverse Reactions: No Known Allergies Allergy (Verified 01/13/17 13:18) - Home Medications Home Medications: Losartan Potassium [Cozaar 50 mg (*)] 50 mg PO BID 06/30/17 [Last Taken 07/12/17 ] Oxymetazoline HCl [Afrin Nasal [place] (OTC)] 1 spray EACHNARE BID PRN 06/30/17 [ Last Taken 06/22/17] Sertraline HCl [Zoloft 50mg (*)] 50 mg PO DAILY 06/30/17 [Last Taken 07/13/17 07 :30] amLODIPine BESYLATE [Norvasc 2.5 mg (*)] 2.5 mg PO DAILY 06/30/17 [Last Taken 07:30] glipiZIDE [Glipizide] 10 mg PO BID 06/30/17 [Last Taken 07/12/17] metFORMIN HCL [Glucophage 1000 mg] 1,000 mg PO BIDMEAL 06/30/17 [Last Taken 07:30] - NPO status NPO Since - Liquids (Date): 07/13/17 NPO Since - Liquids (Time): 07:30 NPO Since - Solids (Date): 07/12/17 NPO Since - Solids (Time): 18:00 - Smoking Hx Smoking Status: Never smoked - Family Anes Hx Family Hx Anesthesia Complications: none ANE Labs/Vital Signs - Vital Signs Blood Pressure: 116/77 Heart Rate: 85 Respiratory Rate: 16 O2 Sat (%): 92 Height: 162.56 cm Weight: 86.183 kg ANE Physical Exam - Airway Neck exam: FROM Mallampati Score: Class 3 Mouth exam: small mouth opening - Pulmonary Pulmonary: no respiratory distress - Cardiovascular Cardiovascular: regular rate and rhythym - ASA Status ASA Status: III ANE Anesthesia Plan Anesthesia Plan: GA w LMA, MAC, spinal Regional Anesthesia: adductor canal FNB
[2017-07-13] MEDS ORDERED: fentaNYL 100 MCG/2 ML INJ ONE ×3 (11:05→11:37)
[2017-07-13] MEDS ORDERED: PROPOFOL/EMULSION 500 MG/50 ML BOTTLE IV ONE (11:05)
[2017-07-13] MEDS ORDERED: METOCLOPRAMIDE 10 MG/2 ML VIAL IVP PRN (11:28)
[2017-07-13] MEDS ORDERED: BISACODYL 10 MG SUPP PR PRN (11:28)
[2017-07-13] MEDS ORDERED: DIPHENOXYLATE/ATROPINE LOMOTIL 1 TAB PO PRN (11:28)
[2017-07-13] MEDS ORDERED: TEMAZEPAM 15 MG CAP PO PRN (11:28)
[2017-07-13] MEDS ORDERED: ONDANSETRON 4 MG/2 ML VIAL IVP PRN ×2 (11:28→12:08)
[2017-07-13] MEDS ORDERED: LACTULOSE 20 GM/30 ML UDCUP PO PRN (11:28)
[2017-07-13] MEDS ORDERED: POLYETHYLENE GLYCOL 3350 17 GM PKT PO PRN (11:28)
[2017-07-13] MEDS ORDERED: PROMETHAZINE HCL 25 MG SUPPR PR PRN (11:28)
[2017-07-13] MEDS ORDERED: MAGNESIUM HYDROXIDE 30 ML UDCUP PO PRN (11:28)
[2017-07-13] MEDS ORDERED: PROMETHAZINE HCL 25 MG/ML INJ IVP PRN ×2 (11:28→12:08)
[2017-07-13] MEDS ORDERED: diphenhydrAMINE 25 MG CAP PO PRN (11:28)
[2017-07-13] MEDS ORDERED: D50W 25 GM/50 ML SYR IVP PRN (11:28)
[2017-07-13] MEDS ORDERED: CYCLOBENZAPRINE 10 MG TAB PO PRN (11:28)
[2017-07-13] MEDS ORDERED: ONDANSETRON DISINTEGRATING 4 MG TAB PO PRN (11:28)
[2017-07-13] MEDS ORDERED: LR 1,000 ML IV SCH (11:30)
[2017-07-13] MEDS ORDERED: HYDROCODONE/APAP 5/325 TAB PO PRN (12:08)
[2017-07-13] MEDS ORDERED: fentaNYL 100 MCG/2 ML INJ IVP PRN (12:08)
[2017-07-13] MEDS ORDERED: NALOXONE HCL 0.4 MG/ML INJ IVP PRN (12:08)
[2017-07-13] MEDS ORDERED: DEXAMETHASONE 4 MG/ML VIAL ONE (12:09)
[2017-07-13] MEDS ORDERED: ONDANSETRON 4 MG/2 ML VIAL ONE (12:09)
[2017-07-13] MEDS ORDERED: ROCURONIUM 50 MG/5 ML VIAL ONE (12:09)
[2017-07-13] MEDS ORDERED: PHENYLEPHRINE HCL 100 MCG/ML SYR ONE (12:09)
--- NOTE | 2017-07-13 12:29 | POSTOPPROG ---
Post Op Note Date of Operation: 07/13/17 Surgeon: Carina Mejía Transcribing Operators Supervisor: shelton mejía Anesthesiologist: dr. duvall Anesthesia: Spinal, Other (Specify) (adductor canal block) Pre-op Diagnosis: left knee OA Post-op Diagnosis: same Indication: left knee pain Procedure: L TKA Findings: severe knee OA Inf/Abcess present in the surg proc area at time of surgery?: No EBL: 50-100
[2017-07-13] MEDS ORDERED: HYDROmorphONE/DILAUDID 1 MG/ML INJ ONE ×2 (12:41→12:55)
[2017-07-13] MEDS: HYDROmorphONE/DILAUDID 2 MG/ML INJ IVP PRN ×4 (12:44→14:03)
[2017-07-13] MEDS ORDERED: ceFAZolin 2 GM/DEXTROSE 100 ML IV SCH ×2 (14:00→17:00)
[2017-07-13] MEDS: INSULIN REGULAR HUMAN 100 UNIT/ML UNIT SC SCH ×3 (14:41→20:48)
[2017-07-13] MEDS: HYDROCODONE/APAP 10/325 TAB PO PRN (15:01)
[2017-07-13] MEDS: ceFAZolin 2 GM/SWFI 2 GM/20 ML SYR IVP SCH (17:49)
[2017-07-13] MEDS: metFORMIN HCL 500 MG TAB PO SCH (17:50)
[2017-07-13] MEDS ORDERED: NON-FORMULARY NEW DRUG (Metformin Hcl [Glucophage 1000 Mg] 1,000 MG) PO SCH (18:00)
[2017-07-13] MEDS: FAMOTIDINE 20 MG TAB PO SCH (20:43)
[2017-07-13] MEDS: ASPIRIN 81 MG CHEWABLE TAB PO SCH (20:43)
[2017-07-13] MEDS: glipiZIDE 10 MG TAB PO SCH (20:43)
[2017-07-13] MEDS: LOSARTAN POTASSIUM 50 MG TAB PO SCH (20:43)
[2017-07-13] MEDS ORDERED: ATORVASTATIN CALCIUM 40 MG TAB PO SCH (21:00)
[2017-07-13] MEDS: SENNOSIDES/DOCUSATE SODIUM TAB PO SCH (23:51)
[2017-07-14] MEDS: ceFAZolin 2 GM/SWFI 2 GM/20 ML SYR IVP SCH (00:28)
[2017-07-14] MEDS: metFORMIN HCL 500 MG TAB PO SCH (07:32)
[2017-07-14] MEDS: HYDROCODONE/APAP 10/325 TAB PO PRN (07:34)
[2017-07-14 07:46] VITALS: BP 113/65
[2017-07-14] MEDS: INSULIN REGULAR HUMAN 100 UNIT/ML UNIT SC SCH (07:53)
--- NOTE | 2017-07-14 08:35 | SOAPPROG ---
SOAP Progress Note Assessment/Plan: Assessment: Patient is doing well POD 1 s/p L TKA Pain management: pain is well controlled on oral pain meds. VTE ppx: recommend aspirin 81 mg BID for 4 weeks, cont STEW and SCDs Anemia: level is expected initially postop. Asymptomatic. Continue to monitor D/c planning: d/c to home today pending release from PT Plan: 07/14/17 08:34 Subjective: lenny states mild-mod pain, denies SOB, chest pain and N/V. Objective: Vital Signs Temp Pulse Resp BP Pulse Ox 36.3 C 82 16 113/65 92 07/14/17 07:45 07/14/17 07:45 07/14/17 07:45 07/14/17 07:45 07/14/17 07:45 Laboratory Results 07/14/17 04:12 07/13/17 07/14/17 07/15/17 05:59 05:59 05:59 Intake Total 1900 250 Output Total 230 Balance 1670 250 LLE; incision dressing is clean and dry, NVI, +pf/df ICD10 Worksheet Patient Problems: Problems Problem Status Onset Primary localized osteoarthritis of left knee Acute Cerebral aneurysm Acute Diabetes Acute HTN (hypertension) Acute Hypoxemia requiring supplemental oxygen Acute Pharyngitis, acute Acute Primary localized osteoarthritis of right knee Acute
[2017-07-14] MEDS ORDERED: SERTRALINE HCL 50 MG TAB PO SCH (09:00)
--- NOTE | 2017-07-14 09:17 | GDS ---
[f rep st] DISCHARGE SUMMARY ADMISSION DIAGNOSIS: Left knee osteoarthritis. DISCHARGE DIAGNOSIS: Left knee osteoarthritis. PROCEDURE: Left total knee arthroplasty. VTE PROPHYLAXIS: Recommend baby aspirin 81 mg twice daily for 4 weeks. BRIEF DESCRIPTION OF HOSPITAL STAY: Patient was admitted for an elective joint arthroplasty. The pa odell tolerated the procedure well and has passed physical therapy. The patient was given appropriat e antibiotic prophylaxis and venous thromboembolism prophylaxis. The patient's pain was well control led on oral pain medication, patient was holding down food, and had urinated. Decision was made to d ischarge the patient. The patient was given post-operative prescriptions pre-operatively. PLAN: To follow up as scheduled in Dr. Reed's office on August 04 at 3:30 p.m. /[id number]/MODL
[2017-07-14] MEDS: ASPIRIN 81 MG CHEWABLE TAB PO SCH (09:44)
[2017-07-14] MEDS: glipiZIDE 10 MG TAB PO SCH (09:44)
[2017-07-14] MEDS: SENNOSIDES/DOCUSATE SODIUM TAB PO SCH (09:44)
[2017-07-14] MEDS: LOSARTAN POTASSIUM 50 MG TAB PO SCH (09:45)
[2017-07-14] MEDS: FAMOTIDINE 20 MG TAB PO SCH (09:45)
[2017-07-14] MEDS ORDERED: PNEUMOCOCCAL 0.5ML VACCINE VIAL IM ONE (09:50)
--- NOTE | 2017-07-14 22:35 | GOP ---
[f rep st] OPERATIVE REPORT DATE OF OPERATION: 07/13/2017 SURGEON: Frank Reed MD NEUROSURGEON: Frank Reed MD. BRIDAL SALES CONSULTANT: YADI Herzog. PREOPERATIVE DIAGNOSIS: Left knee osteoarthritis. POSTOPERATIVE DIAGNOSIS: Left knee osteoarthritis. PROCEDURE PERFORMED: Total knee arthroplasty. FINDINGS: ESTIMATED BLOOD LOSS: 30 cc. INDICATIONS: This is a 57-year-old female with severe and progressive pain and deformity of the left knee unresponsive to conservative care. Risks and benefits of the surgical intervention were explai sebastian in detail. DESCRIPTION OF PROCEDURE: The patient was brought to the operative room and placed on the table in t he supine position. Spinal anesthesia was induced without difficulty. A pneumatic tourniquet was ap plied about the left proximal thigh, and the leg was prepped and draped in a sterile fashion. The le g mitchell was applied. After exsanguination by elevation the tourniquet was inflated to 250 mm of radu cury. Incision was made anterior medial from the tibial tuberosity to a point 2 cm proximal to the superior pole of the patella. Medial parapatellar arthrotomy was carried out from the superior pole of the p atella and posteriorly in line with the fibers of the Type 2 VMO. The amount of pathology was severe . Medial and patellofemoral osteoarthritis. The medial collateral ligament was elevated and the inf rapatellar fat pad was resected. The patella was everted and the articular surface was excised. A 35 mm patellar button was placed. T he distal femoral guide hole was drilled and the 60 degree alignment demi was placed. A 9 mm distal f emoral cut was made without difficulty. Attention was turned to the tibia and a standard 9 mm cut based on the lateral tibial condyle was per formed. The tibial articular surface was excised without difficulty. Attention was turned back to the femur 3 Triathlon and femoral cutting block was positioned. Anterio r, posterior, and chamfer cuts were made, followed by the intercondylar box cut. The knee was extended and the remnants of the medial and lateral meniscus were excised. The posterio r capsule was injected with ropivacaine, epinephrine and Toradol. A size 4 tibial tray was positione d. Trial reduction was then carried out. There was excellent range of motion, alignment, and stabil ity using the 13 mm polyethylene. All trials were then removed. The joint was thoroughly irrigated and carefully dried. Two packages of cement and 2 grams of vancomycin were mixed in the vacuum mixer and placed on the fixation surface s of all surfaces of the components. The components were implanted and all excess cement was thoroug hly removed. The permanent 13 mm polyethylene was placed without difficulty. The tourniquet was deflated and all bleeders were coagulated. The wound was thoroughly irrigated and closed using interrupted sutures of 2-0 Vicryl for the joint capsule. The subcu was closed with 3-0 Vicryl and the skin with 4-0 Monocryl. Dermabond and Steri-Strips were applied followed by a compre ssive dressing. The patient was then moved from the operating room to the recovery room in good cond ition, having tolerated the procedure well. TOURNIQUET TIME: 250 mmHg. /[id number]/MODL
== END 2017-07-14 12:00 | disposition home or self-care (01) ==
LOC: F3N 08:41 → MERGE 11:15 → F3N 14:21
PROVIDERS: ADMIT Orthopaedic Surgery; ATTEND Orthopaedic Surgery
PROC: 0SRD069 Replacement of Left Knee Joint with Oxidized Zirconium on Polyethylene Synthetic Substitute, Cemented, Open Approach (ICD-10-PCS; principal; 2017-07-13 11:15)
DX: M17.12 Unilateral primary osteoarthritis, left knee (principal); G47.33 Obstructive sleep apnea (adult) (pediatric)
CPT/HCPCS: 97116-GP; 97161-GP; 97530-GP; C1713; G0009; G0378; J0171; J0690; J1100; J1170; J1815; J1885; J2250; J2370; J2405; J2704; J2795; J3010; J3370